=== PATIENT | female | born 1975 | race African-American/Black ===

== ENCOUNTER 2021-03-07 17:42 | Emergency (ER) | payer OTHER ==
[2021-03-07 19:03] VITALS: BP 133/69
== END 2021-03-07 19:22 | disposition home or self-care (01) ==
LOC: ED 17:42
DX: U07.1 COVID-19 (principal)

== ENCOUNTER 2022-02-08 23:32 | Emergency (ER) | payer BC, OTHER ==
[~2022-02-08] VITALS: Ht 167.6 cm; Wt 80.0 kg
[2022-02-09 00:01] VITALS: BP 127/105
[2022-02-09 00:12] LABS: HEMATOCRIT 38.3 % (37.0-47.0); HEMOGLOBIN 12.3 g/dl (12.0-16.0); IMMATURE GRANULOCYTES 0.2 % (0.0-5.0); MEAN CELL VOLUME 88.2 fL CALC (80.0-100.0); MEAN CORPUSCULAR HGB 28.3 pG CALC (26.0-32.0); MEAN CORPUSCULAR HGB CONC 32.1 g/dL CAL (32.0-36.0); NEUT# 2.24 thou/uL (2.00-7.15); RED BLOOD COUNT 4.34 mill/uL (4.20-5.60); RED CELL DISTRI WIDTH 12.7 % (11.5-15.5)
[2022-02-09 00:40] VITALS: BP 127/105
== END 2022-02-09 00:49 | disposition home or self-care (01) | DRG 866 ==
LOC: ED 23:32
PROVIDERS: Family Medicine
DX: B34.9 Viral infection, unspecified (principal); Z20.822 Contact with and (suspected) exposure to COVID-19